=== PATIENT | female | born 1965 | race Two or more races ===

== ENCOUNTER 2024-06-18 11:12 | Emergency (ER) | payer OTHER ==
[~2024-06-18] VITALS: Ht 160 cm; Wt 50.3 kg
[2024-06-18] MEDS ORDERED: MONTELUKAST SODI4 M1 (11:20)
[2024-06-18] MEDS ORDERED: PEPCID AC20 MG (11:21)
[2024-06-18] MEDS ORDERED: MEPERIDINE HCL/PF 25 MG/ML VIAL IV ONE (11:45)
[2024-06-18] MEDS ORDERED: 0.9 % SODIUM CHLORIDE 1,000 ML IV SCH (11:45)
[2024-06-18] MEDS ORDERED: BARIUM SULFATE 450 ML ORAL.SUSP PO ONE (11:50)
[2024-06-18 12:10] LABS: HEMOGLOBIN 12.9 g/dL (12.0-15.00); MEAN CORPUSCULAR HEMOGLOBIN 29.5 pg (27.00-32.0); MEAN CORPUSCULAR HGB CONC 33.2 g/dl (32.0-36.0); PLATELET COUNT 188 K/uL (150-450); RED BLOOD COUNT 4.38 M/uL (4.00-6.00); RED CELL DISTRIBUTION WIDTH 14.2 % (11.5-14.5)
[2024-06-18 12:43] LABS: CALCIUM 8.9 mg/dL (8.5-10.1); CREATININE SERUM 0.63 mg/dL (0.55-1.02); GFR 96.07; POTASSIUM 4.14 mEq/L (3.5-5.1)
[2024-06-18 12:56] LABS: PH,URINE 8.5 (5.0-8.0); URINE APPEARANCE Cloudy; URINE BILIRRUBIN Negative (NEGATIVE); URINE BLOOD Negative; URINE COLOR Yellow; URINE GLUCOSE Negative (NEGATIVE); URINE KETONE 15 (NEGATIVE); URINE LEUKOCYTE Negative; URINE NITRATE Negative; URINE PROTEIN 30 (NEGATIVE); URINE UROBILINOGEN 0.2 E.U./dl
[2024-06-18 13:00] LABS: URINE BACTERIA 30.2 uL (0.0-1933); URINE WBC 4.6 uL (0.0-23.2)
[2024-06-18 13:06] LABS: URINE CAST 0.76 uL (0.0-1.40)
== END 2024-06-18 18:27 | disposition home or self-care (01) ==
LOC: ER 11:14
PROVIDERS: Emergency Medicine
DX: K52.9 Noninfective gastroenteritis and colitis, unspecified (principal); R10.9 Unspecified abdominal pain

== ENCOUNTER 2024-12-09 21:17 | Emergency (ER) | payer OTHER ==
[~2024-12-09] VITALS: Ht 160 cm; Wt 50.8 kg
[~2024-12-09 21:17] MED LIST: MONTELUKAST SODI4 M1; PEPCID AC20 MG
[2024-12-09] MEDS ORDERED: ADULT LOW DOSE81 M1 (21:25)
[2024-12-09] MEDS ORDERED: PEPCID40 MG PO (21:26)
== END 2024-12-10 00:36 | disposition home or self-care (01) ==
LOC: ER 21:19
DX: T14.8XXA Other injury of unspecified body region, initial encounter (principal); V49.9XXA Car occupant (driver) (passenger) injured in unspecified traffic accident, initial encounter; Y93.89 Activity, other specified; Y92.413 State road as the place of occurrence of the external cause; Y99.9 Unspecified external cause status; R51.9 Headache, unspecified; M51.369 Other intervertebral disc degeneration, lumbar region without mention of lumbar back pain or lower extremity pain